=== PATIENT | male | born 1975 | race Caucasian/White ===

== ENCOUNTER 2018-10-09 11:12 | Emergency (ER) | payer MEDICAID ==
[~2018-10-09] VITALS: Ht 167.6 cm; Wt 65.9 kg
[2018-10-09] MEDS: KETOROLAC TROMETHAMINE 60 MG/2 ML VIAL IM ONE (13:29)
[2018-10-09] MEDS: METHOCARBAMOL 500 MG TABLET PO ONE (13:29)
[2018-10-09 13:49] VITALS: BP 141/79
== END 2018-10-09 14:03 | disposition home or self-care (01) ==
LOC: EMS 11:30
DX: S33.5XXA Sprain of ligaments of lumbar spine, initial encounter (principal); X50.0XXA Overexertion from strenuous movement or load, initial encounter; Y93.H3 Activity, building and construction; Y92.89 Other specified places as the place of occurrence of the external cause; Y99.8 Other external cause status
CPT/HCPCS: 96372; 99283; J1885